=== PATIENT | male | born 1965 | race Caucasian/White ===

== ENCOUNTER 2017-11-11 07:39 | Day surgery (SDC) | payer SELFPAY ==
[2017-11-11] MEDS ORDERED: Lactated Ringers 1,000 ML IV SCH (07:45)
[2017-11-11] MEDS ORDERED: Sodium Chloride 0.9% 10 ML Syringe FLUSH PRN (07:45)
[2017-11-11] MEDS ORDERED: Propofol 200 MG/20 ML SDV IV ONE (09:00)
--- NOTE | 2017-11-11 09:46 | PCM.OPNOTE ---
- General Post-Op/Procedure Note Date of Surgery/Procedure: 11/11/17 Operative Procedure(s): c scope with hot loop biopsy. hemorrhoid banding right ant and post columns Findings: transverse colon polyp internal hemorrhoids right ant and post column. Pre Op Diagnosis: hematochezia Post-Op Diagnosis: transverse colon polyp. internal hemorrhoids right ant and post column. Anesthesia Technique: MAC Primary Surgeon: Cali Sawyer Anesthesia Provider: Anya Olmedo Pathology: transverse colon polyp Complications: None Condition: Good Free Text/Narrative:: see dictation
--- NOTE | 2017-11-11 14:07 | OR ---
DATE OF OPERATION: 11/11/2017 SURGEON: Cali Sawyer MD PROCEDURE PERFORMED: Colonoscopy with hot loop snare and hemorrhoid banding. PREOPERATIVE DIAGNOSIS: Rectal bleeding. POSTOPERATIVE DIAGNOSES: Transverse colon polyp and bleeding internal hemorrhoids. INDICATIONS FOR PROCEDURE: This is a 52-year-old white male, who is referred for a colonoscopy. He has a history of hematochezia. He was offered and accepted a colonoscopy as well as a possible hemorrhoid banding. DESCRIPTION OF PROCEDURE: After an excellent IV sedation was administered, digital rectal exam was performed. No marked abnormality was noted. Flexible colonoscope was inserted and advanced to the cecum without difficulty. The prep was excellent. The following findings were noted: Ascending colon, unremarkable. Transverse colon and mid transverse colon small polypoid lesion, biopsied with a hot loop snare and retrieved. The base of the biopsy stalk was also fulgurated using the hot forceps. Descending colon was unremarkable. Sigmoid was unremarkable. Rectum was unremarkable. On retroflexing the scope, he has evidence of internal hemorrhoids. On insertion of the anal speculum, these were predominantly on the right anterior and posterior columns. These were rubber-band ligated with a suction hemorrhoid ligator, 2 on the right anterior and 1 in the right posterior column. The left lateral column was unremarkable. The patient tolerated the procedure well and was taken to recovery room. /[id number] /MODL
== END 2017-11-11 11:40 | disposition home or self-care (01) ==
LOC: FB.SDS 07:39
PROVIDERS: ATTEND Surgery
DX: K63.5 Polyp of colon (principal); K64.8 Other hemorrhoids
CPT/HCPCS: 00811; 45384; 45398; 88305; J2704; J7120

== ENCOUNTER 2018-04-30 12:03 | Emergency (ER) | payer SELFPAY ==
--- NOTE | 2018-04-30 13:01 | EDM.PDOC ---
ED HPI GENERAL MEDICAL PROBLEM - General Chief Complaint: Neuro Symptoms/Deficits Stated Complaint: numbness on left side Time Seen by Provider: 04/30/18 12:30 Source of Information: Reports: Patient History Limitations: Reports: No Limitations - History of Present Illness INITIAL COMMENTS - FREE TEXT/NARRATIVE: at 945 AM whn[place]en standing in s [employer] experienced left side of body tingling ( filomena dysesthesia) and slight ataxia without change in speech or cognition, the at 3 hours has decreased 50%, gait improved but he still does not feel it has returned to normal, had breakfast- no hx of hypoglycemia, no hx head trauma Onset: Today Duration: Hour(s): (3) Severity: Mild Improves with: Reports: None Associated Symptoms: Reports: No Other Symptoms Treatments DRY TRANSFER MAN: Reports: Other (see below) (none) - Related Data Allergies Allergy/AdvReac Type Severity Reaction Status Date / Time No Known Allergies Allergy Verified 04/30/18 12:18 Home Meds: Home Meds NK [No Known Home Meds] 11/10/17 [History] Past Medical History - Past Health History Medical/Surgical History: Denies Medical/Surgical History HEENT History: Reports: Impaired Vision Gastrointestinal History: Reports: Hemorrhoids - Infectious Disease History Infectious Disease History: Reports: Chicken Pox, Measles, Mumps, Shingles - Past Surgical History HEENT Surgical History: Reports: Oral Surgery GI Surgical History: Reports: Appendectomy, Hernia, Inguinal, Hernia Repair/ Other Musculoskeletal Surgical History: Reports: Other (See Below) Other Musculoskeletal Surgeries/Procedures:: LEFT TOTAL KNEE, RIGHT ACILLIES. Social & Family History - Family History Family Medical History: Unobtainable - Tobacco Use Smoking Status *Q: Never Smoker - Caffeine Use Caffeine Use: Reports: Coffee, Energy Drinks, Soda, Tea Other Caffeine Use: 6 CUPS - Recreational Drug Use Recreational Drug Use: No ED ROS GENERAL - Review of Systems Review Of Systems: See Below Constitutional: Reports: No Symptoms HEENT: Reports: No Symptoms Respiratory: Reports: No Symptoms Cardiovascular: Reports: No Symptoms Endocrine: Reports: No Symptoms GI/Abdominal: Reports: No Symptoms : Reports: No Symptoms Musculoskeletal: Reports: No Symptoms Skin: Reports: No Symptoms Neurological: Reports: No Symptoms Psychiatric: Reports: No Symptoms Hematologic/Lymphatic: Reports: No Symptoms Immunologic: Reports: No Symptoms ED EXAM, NEURO - Physical Exam Exam: See Below Text/Narrative:: healthy looking muscular, man in no acute distress, Exam Limited By: No Limitations General Appearance: Alert, WD/WN, No Apparent Distress Eye Exam: Bilateral Eye: Normal Inspection, PERRL Ears: Normal External Exam Nose: Normal Inspection Throat/Mouth: Normal Inspection Head Exam: Atraumatic Neck: Normal Inspection, Supple, Non-Tender, Full Range of Motion Respiratory/Chest: No Respiratory Distress, Lungs Clear, Normal Breath Sounds, No Accessory Muscle Use, Chest Non-Tender Cardiovascular: Normal Peripheral Pulses, Regular Rate, Rhythm, No Edema, No Gallop, No JVD, No Murmur, No Rub GI/Abdominal: Normal Bowel Sounds Neurological: Alert, Normal Mood/Affect, Normal Dorsiflexion, CN II-XII Intact, Normal Plantar Flexion, Normal Gait, Normal Reflexes, Other (subjectiv dyesthesia left lower 1/2 of face ,left uperpe an lower extremity; mild atacxia ( he fee;lis 505 better) DTR: 0: Achilles (L), 1+: Bicep (R), Patella (R), Patella (L), Achilles (R) Back Exam: Normal Inspection, Full Range of Motion Extremities: Normal Inspection, Normal Range of Motion (mild ataxic gait) *Q Meaningful Use (ADM) - VTE Risk Assess *Q Each Risk Factor Represents 1 Point: None Total Score 1 Point Risk Factors: 0 Each Risk Factor Represents 3 Points: None Total Score 3 Point Risk Factors: 0 Course - Vital Signs Last Recorded V/S: Last Vital Signs Temp 36.6 C 04/30/18 17:28 Pulse 71 04/30/18 17:45 Resp 18 04/30/18 17:45 BP 154/89 H 04/30/18 17:45 Pulse Ox 98 04/30/18 17:45 - Orders/Labs/Meds Orders: Active Orders 24 hr Category Date Time Status Ang Head [CT] Stat Exams 04/30/18 15:05 Taken CXR [Chest 2V] [CR] Stat Exams 04/30/18 12:50 Taken Head wo Cont [CT] Stat Exams 04/30/18 12:48 Taken DRUG SCREEN, URINE ALERE [URCHEM] Urgent Lab 04/30/18 13:10 Ordered UA W/MICROSCOPIC [URIN] Urgent Lab 04/30/18 13:10 Ordered EKG 12 Lead [EK] Routine Ther 04/30/18 12:50 Ordered Labs: Laboratory Tests 04/30/18 04/30/18 04/30/18 Range/Units 13:00 13:00 13:00 WBC 7.0 (4.5-12.0) X10-3/uL RBC 5.53 (4.30-5.75) x10(6)uL Hgb 16.6 H (11.5-15.5) g/dL Hct 48.5 (30.0-51.3) % MCV 87.6 (80-96) fL MCH 30.1 (27.7-33.6) pg MCHC 34.3 (32.2-35.4) g/dL RDW 12.5 (11.5-15.5) % Plt Count 298 (125-369) X10(3)uL MPV 8.1 (7.4-10.4) fL Neut % (Auto) 73.7 (46-82) % Lymph % (Auto) 17.4 (13-37) % Whiteside % (Auto) 7.5 (4-12) % Eos % (Auto) 1 (1.0-5.0) % Baso % (Auto) 1 (0-2) % Neut # (Auto) 5.2 (1.6-8.3) # Lymph # (Auto) 1.2 (0.6-5.0) # Whiteside # (Auto) 0.5 (0.0-1.3) # Eos # (Auto) 0.1 (0.0-0.8) # Baso # (Auto) 0.0 (0.0-0.2) # PT (8.7-11.1) INR (0.89-1.13) Sodium 134 L (135-145) mmol/L Potassium 3.8 (3.5-5.3) mmol/L Chloride 102 (100-110) mmol/L Carbon Dioxide 24 (21-32) mmol/L BUN 21 H (7-18) mg/dL Creatinine 0.9 (0.70-1.30) mg/dL Est Cr Clr Drug Dosing 110.36 mL/min Estimated GFR (MDRD) > 60 (>60) BUN/Creatinine Ratio 23.3 H (9-20) Glucose 106 (80-116) mg/dL Calcium 8.7 (8.6-10.2) mg/dL Total Bilirubin 1.4 H (0.1-1.3) mg/dL AST 17 (5-25) IU/L ALT 38 H (12-36) U/L Alkaline Phosphatase 69 (56-112) IU/L Troponin I < 0.017 L (<0.017-0.056) ng/mL Total Protein 7.6 (6.0-8.0) g/dL Albumin 3.9 (3.5-5.2) g/dL Globulin 3.7 g/dL Albumin/Globulin Ratio 1.1 Urine Color (YELLOW) Urine Appearance (CLEAR) Urine pH (5.0-6.5) Ur Specific [place] (1.010-1.025) Urine Protein (NEGATIVE) mg/dL Urine Glucose (UA) (NEGATIVE) mg/dL Urine Ketones (NEGATIVE) mg/dL Urine Occult Blood (NEGATIVE) Urine Nitrite (NEGATIVE) Urine Bilirubin (NEGATIVE) Urine Urobilinogen (NEGATIVE) mg/dL Ur Leukocyte Esterase (NEGATIVE) Urine WBC (0) Ur Squamous Epith Cells (NS,R,O) Urine Bacteria (NS) Urine Opiates Screen (NEGATIVE) Ur Oxycodone Screen (NEGATIVE) Ur Propoxyphene Screen (NEGATIVE) Ur Barbituates Screen (NEGATIVE) Ur Tricyclics Screen (NEGATIVE) Ur Phencyclidine Scrn (NEGATIVE) Ur Amphetamine Screen (NEGATIVE) Urine MDMA Screen (NEGATIVE) U Benzodiazepines Scrn (NEGATIVE) U Cocaine Metab Screen (NEGATIVE) U Marijuana (THC) Screen (NEGATIVE) 04/30/18 04/30/18 04/30/18 Range/Units 13:00 13:10 13:10 WBC (4.5-12.0) X10-3/uL RBC (4.30-5.75) x10(6)uL Hgb (11.5-15.5) g/dL Hct (30.0-51.3) % MCV (80-96) fL MCH (27.7-33.6) pg MCHC (32.2-35.4) g/dL RDW (11.5-15.5) % Plt Count (125-369) X10(3)uL MPV (7.4-10.4) fL Neut % (Auto) (46-82) % Lymph % (Auto) (13-37) % [place] % (Auto) (4-12) % Eos % (Auto) (1.0-5.0) % Baso % (Auto) (0-2) % Neut # (Auto) (1.6-8.3) # Lymph # (Auto) (0.6-5.0) # Whiteside # (Auto) (0.0-1.3) # Eos # (Auto) (0.0-0.8) # Baso # (Auto) (0.0-0.2) # PT 10.2 (8.7-11.1) INR 1.05 (0.89-1.13) Sodium (135-145) mmol/L Potassium (3.5-5.3) mmol/L Chloride (100-110) mmol/L Carbon Dioxide (21-32) mmol/L BUN (7-18) mg/dL Creatinine (0.70-1.30) mg/dL Est Cr Clr Drug Dosing mL/min Estimated GFR (MDRD) (>60) BUN/Creatinine Ratio (9-20) Glucose (80-116) mg/dL Calcium (8.6-10.2) mg/dL Total Bilirubin (0.1-1.3) mg/dL AST (5-25) IU/L ALT (12-36) U/L Alkaline Phosphatase (56-112) IU/L Troponin I (<0.017-0.056) ng/mL Total Protein (6.0-8.0) g/dL Albumin (3.5-5.2) g/dL Globulin g/dL Albumin/Globulin Ratio Urine Color Yellow (YELLOW) Urine Appearance Clear (CLEAR) Urine pH 5.0 (5.0-6.5) Ur Specific [place] 1.015 (1.010-1.025) Urine Protein Negative (NEGATIVE) mg/dL Urine Glucose (UA) Normal (NEGATIVE) mg/dL Urine Ketones Negative (NEGATIVE) mg/dL Urine Occult Blood Negative (NEGATIVE) Urine Nitrite Negative (NEGATIVE) Urine Bilirubin Negative (NEGATIVE) Urine Urobilinogen Normal (NEGATIVE) mg/dL Ur Leukocyte Esterase Negative (NEGATIVE) Urine WBC Not seen (0) Ur Squamous Epith Cells Occasional (NS,R,O) Urine Bacteria Rare H (NS) Urine Opiates Screen Negative (NEGATIVE) Ur Oxycodone Screen Negative (NEGATIVE) Ur Propoxyphene Screen Negative (NEGATIVE) Ur Barbituates Screen Negative (NEGATIVE) Ur Tricyclics Screen Negative (NEGATIVE) Ur Phencyclidine Scrn Negative (NEGATIVE) Ur Amphetamine Screen Negative (NEGATIVE) Urine MDMA Screen Negative (NEGATIVE) U Benzodiazepines Scrn Negative (NEGATIVE) U Cocaine Metab Screen Negative (NEGATIVE) U Marijuana (THC) Screen Negative (NEGATIVE) Meds: Medications Discontinued Medications Generic Name Dose Route Start Last Admin Trade Name Camelia PRN Reason Stop Dose Admin Iopamidol 75 ml 04/30/18 15:21 04/30/18 15:36 Isovue-370 (76%) IV 04/30/18 15:22 75 ml ONETIME ONE Administration Departure - Departure Time of Disposition: 13:45 Disposition: Home, Self-Care 01 Condition: Good Clinical Impression: Sensation disturbance of skin - Discharge Information *PRESCRIPTION DRUG MONITORING PROGRAM REVIEWED*: No *COPY OF PRESCRIPTION DRUG MONITORING REPORT IN PATIENT GINA: No Instructions: Paresthesia Referrals: Johnathan Leyva MD [Primary Care Provider] - Forms: ED Department Discharge Additional Instructions: PER DR MATOS , STROKE NEUROLOGIST [facility], HE RECOMMENDED ECHO OF HEART. ECHO SCHEDULED FOR , XR WILL CALL YOU WITH TIME AND I HAVE DISCUSSED THE ORDER WITH DR LEYVA, HE WILL BE THE ONE TO GET THE REPORT AND HE HAS AGREED TO FOLLOW UP WITH MR DIAMOND THE MRI HAS BEEN ORDERED OF THE HEAD, XR WILL CALL YOU WITH DATE/TIME USE BABY ASPIRIN 81MG DAILY DR LEYVA WILL BE THE ONE GETTING YOUR REPORT FOR THE ECHO AND THE MRI OF YOUR HEAD SO TALK TO DR LEYVA FOR THESE TEST RESULTS ED Communication - Discussed Case With (1) Discussed Case With (1): Inpatient [facility] (Discussed DR MOORE , NEUROLOGIST CONSULTED ;) - My Orders Last 24 Hours: My Active Orders 04/30/18 12:48 Head wo Cont [CT] Stat 04/30/18 12:50 CXR [Chest 2V] [CR] Stat EKG 12 Lead [EK] Routine 04/30/18 13:10 DRUG SCREEN, URINE ALERE [URCHEM] Urgent UA W/MICROSCOPIC [URIN] Urgent 04/30/18 15:05 Ang Head [CT] Stat - Assessment/Plan Last 24 Hours: My Active Orders 04/30/18 12:48 Head wo Cont [CT] Stat 04/30/18 12:50 CXR [Chest 2V] [CR] Stat EKG 12 Lead [EK] Routine 04/30/18 13:10 DRUG SCREEN, URINE ALERE [URCHEM] Urgent UA W/MICROSCOPIC [URIN] Urgent 04/30/18 15:05 Ang Head [CT] Stat Assessment:: ct head negative but consultation with Dr Moore, [facility] stroke neurologist, raised the question if he had a posterior cerebral artery circulation abn and requested a postero cerebral angio to r/o treatable cerebral vessel atheroscerolsis/ stenosis. the later was negative. Dr Lopes suggested he get a MRI to r?o thalamic CVA and until that is completed to use baby asa
[2018-04-30] MEDS ORDERED: Iopamidol 755 Mg/ML 75 ML Bottle IV ONE (15:21)
--- NOTE | 2018-05-01 13:27 | CR ---
INDICATION: Hemidysesthesia, left. CHEST: PA and lateral views of the chest were obtained 04/30/2018 and revealed the heart to be normal in size and shape. The aorta is tortuous. A definite active infiltrate or effusion was not identified. Bony structures were generally intact with suggestion of a very minimal dextroconcave scoliosis of the upper thoracic spine. IMPRESSION: No acute process. MTDD
== END 2018-04-30 17:45 | disposition home or self-care (01) ==
LOC: FB.ED 12:03
DX: R20.2 Paresthesia of skin (principal)
CPT/HCPCS: 36415; 70450; 70496; 71046; 80053; 80305; 81001; 84484; 85025; 85610; 93005; 99284; Q9967